=== PATIENT | male | born 2000 | race African-American/Black ===

== ENCOUNTER 2024-11-21 14:41 | Emergency (ER) | payer SELFPAY ==
[2024-11-21] MEDS: Acetaminophen/oxyCODONE 325-5 MG Tab PO ONE (15:21)
[2024-11-21] MEDS: Diphtheria,Pertussis(Acell),Tetanus Vaccine 0.5 ML Syringe IM ONE (15:22)
[2024-11-21] MEDS: Ibuprofen 600 MG Tab PO ONE (15:22)
[2024-11-21] MEDS: Acetaminophen 325 MG Tab PO ONE (15:22)
== END 2024-11-21 16:15 | disposition home or self-care (01) ==
LOC: JD.ED 14:41
DX: S67.22XA Crushing injury of left hand, initial encounter (principal); S62.611A Displaced fracture of proximal phalanx of left index finger, initial encounter for closed fracture; Z23 Encounter for immunization; X50.9XXA Other and unspecified overexertion or strenuous movements or postures, initial encounter
CPT/HCPCS: 29125; 73130; 90471; 90715; 99283; A9270